=== PATIENT | female | born 1950 | race Caucasian/White ===

== ENCOUNTER → 2023-08-01 12:35 | Outpatient (REF) | payer MEDICARE, SELFPAY | LOC: WDC 12:35 | PROVIDERS: ATTENDING PHYSICIAN Obstetrics & Gynecology; FAMILY PHYSICIAN Family Medicine | DX: Z12.31 Encounter for screening mammogram for malignant neoplasm of breast (principal) | CPT/HCPCS: 77063; 77067 ==

== ENCOUNTER 2024-04-21 05:54 | Inpatient (IN) | payer MEDICARE, SELFPAY ==
[2024-03-31 13:48] LABS: Hematocrit 43.6 % (37.0-47.0); Hemoglobin 14.8 g/dL (12.0-16.0); Mean Corp Hgb Conc. 33.9 g/dL (33.0-37.0); Mean Corpuscular Hgb 29.3 pg (27.0-31.0); Mean Corpuscular Volume 86.3 fL (81.0-99.0); Mean Platelet Volume 9.4 fL (7.4-10.4); Platelet Count 335 10^3/uL (130-400); Red Blood Cell Count 5.05 10^6/uL (4.20-5.40); Red Cell Dist. Width 13.2 % (11.5-14.5); White Blood Cell Count 8.2 10^3/uL (4.8-10.8)
[2024-03-31 13:51] VITALS: BMI 34.6
[2024-03-31 14:20] LABS: Glycohemoglobin (HgbA1c) 5.7 % (4.0-5.6)
[2024-03-31 15:41] LABS: ALT (SGPT) 24 U/L (0-35); AST (SGOT) 29 U/L (14-36); Albumin 4.4 g/dl (3.5-5.0); Alkaline Phosphatase 125 U/L (38-126); Blood Urea Nitrogen 16 mg/dl (7-17); Calcium 9.6 mg/dl (8.4-10.2); Carbon Dioxide 22 mmol/L (22-30); Chloride 105 mmol/L (98-107); Estimated Creatinine Clearance 57 ml/min; Glucose 79 mg/dl (70-99); Sodium 138 mmol/L (135-145); Total Bilirubin 0.6 mg/dl (0.2-1.3); Total Protein 7.1 g/dl (6.3-8.2); eGFR 53.72
--- NOTE | 2024-03-31 15:42 | HPS.HSE ---
Family Physician
-
Family Physician: Tad Garcia
Chief Complaint
-
Advanced primary osteoarthritis of the right knee.
History of Present Illness
The patient is a 73-year-old female presenting today for advanced primary osteoarthritis of the right knee. The patient previously underwent a left total hip arthroplasty with Dr. Dallas Robertson in March 2022. She returns to [facility] today with complaints of significant right knee pain associated with her osteoarthritis. She notes that her current right knee pain is greatly interfering with her activities of daily living and is overall impacting her quality of life. She
has tried and failed multiple conservative treatment measures in the past for her right knee pain. These conservative treatment measures include formal PT, activity modification, self-directed therapeutic exercises, corticosteroid and Zilretta
injections, medical management with Tylenol and NSAIDs, and the application of ice and/or heat. Recent x-ray findings of the right knee confirmed advanced osteoarthritis. She was determined to be in need of a right total knee arthroplasty. She
denies any current complaints today such as chest pain, shortness of breath, palpitations, nausea, vomiting, diarrhea, lightheadedness, dizziness, cough, sore throat, or fever.
Medical History
Past Medical History
Past Medical History: Reports Other
Additional Past Medical History:
1. Osteoarthritis, status post left total hip arthroplasty, 03/2022, by Dr Dallas Robertson.
2. Elevated blood pressure without diagnosis of hypertension.
3. Hyperlipidemia.
4. PVCs.
5. Mild renal insufficiency per pre-operative labs.
6. Nephrolithiasis.
7. Myoclonic seizures.
8. Remote vertigo.
9. Essential tremor of upper and lower extremities.
10. Peripheral neuropathy.
11. Lumbar degenerative disc disease with stenosis.
12. Compression fracture of L1 vertebrae, non-surgical.
13. History of hypothyroidism, currently euthyroid.
14. Basal cell carcinoma, status post multiple MOHS.
15. Depression.
16. Anxiety.
17. Osteopenia.
18. Chronic postnasal drip.
19. 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
20. MRSA + nasal screen 04/05/2022.
21. Prediabetes, A1c 5.7.
22. Obesity, BMI 34.6.
Past Surgical History: Reports Other
Additional Past Surgical History:
1. Left total hip arthroplasty, 2022, by Dr. Dallas Robertson.
2. Left foot surgery.
3. Neck lipoma excision.
4. Left breast cystectomy.
5. Septoplasty.
6. D&C.
7. .
8. Multiple MOHS.
9. Colonoscopy x2.
Social History
Tobacco: Non-smoker
Alcohol: None
Personal:
Living: Other (The patient lives in a two-story home with her spouse and daughter. She plans on doing outpatient PT with [facility] in [place], [place]. )
Family History
Family History: Not pertinent
Allergies / Home Medications
Allergy/Medication List:
Home medications:
1. Acetaminophen oral solution 480 mg p.o. daily as needed.
2. Clonazepam 0.25 mg p.o. daily.
3. Clonazepam 0.25 mg p.o. daily as needed.
4. Ibuprofen 200 mg p.o. daily.
5. Escitalopram oxalate 20 mg p.o. daily.
6. Magnesium glycinate 500 mg p.o. daily at noon.
7. Modafinil 200 mg p.o. daily.
8. Nome-3 500 mg p.o. daily at noon.
9. Vitamin B complex 1 tablet p.o. daily.
10. Zonisamide 100 mg p.o. daily.
ALLERGIES: Pollen and Lidocaine patches.
ADVERSE DRUG REACTIONS: Aspirin (abdominal pain with full dose Aspirin).
Review of Systems
-
A 12 point ROS was completed and negative except as noted: Yes
Physical Exam
Vital Signs
Blood pressure 142/90. Heart rate 82. Respirations 18. Pulse ox 96% on room air.
Height 5 feet, 7 inches. Weight 100.1 kg. BMI 34.6.
Physical Exam
General: Well Developed, Well Nourished and No Apparent Distress
HEENT: NormoCephalic, Moist mucous membranes, Atraumatic and PERRLA
Respiratory: Clear
Cardiac: Regular Rhythm
GI: Soft, Non Tender, Non Distended and Other (Obese. )
Musculoskeletal: Other (Right knee: large effusion, positive warmth, significant valgus alignment, 0-125 range of motion. Left hand and right foot tremor noted. )
Skin: Warm and Dry
Neuro: AO x 3 and Nonfocal/grossly intact
Laboratory Results
-
03/31/24 12:38
03/31/24 12:38
Laboratory Results
Total Bilirubin 0.6 mg/dl (0.2-1.3) 03/31/24 12:38
AST 29 U/L (14-36) 03/31/24 12:38
ALT 24 U/L (0-35) 03/31/24 12:38
Alkaline Phosphatase 125 U/L (38-126) 03/31/24 12:38
Hemoglobin A1c 5.7.
MRSA nasal screen negative; however, she does have a positive MRSA nasal swab from March 2022.
EKG 03/31/2024: Normal sinus rhythm with occasional PVCs. Septal infarct, age undetermined.
Impression/Plan
-
CLEARANCES:
1. Primary care, Dr. Tad Clark, pending.
Primary care phone number: [phone].
2. Cardiology, Dr. Dawn Rider, cleared.
3. Dental waived.
IMPRESSION/PLAN:
1. Advanced primary osteoarthritis of the right knee in need of a right total knee arthroplasty by Dr. Dallas Robertson on 04/21/2024. The benefits and risks of the procedure have been explained to the patient. The patient understands these risks and
wishes to proceed.
2. Deep vein thrombosis prophylaxis: Aspirin 81 mg p.o. twice a day for 4 weeks with bilateral venous compression devices. Baby Aspirin will be used instead of full dose Aspirin due to previous adverse drug reaction.
3. Pain management: The patient would prefer Tylenol oral solution if able. We will also include Dilaudid for moderate-severe pain as needed and Cyclobenzaprine twice a day for muscle spasms as needed. She reportedly tolerated these medications well
after her prior left total hip arthroplasty.
4. Myoclonic seizures: The patient was noted to have seizure-like activity after her previous left total hip arthroplasty which did require Versed and a neurology consult. In an attempt to prevent this from happening again, the patient's
neuropsychiatrist, Dr. Dimas Gillespie, was asked for medication recommendations. The patient was advised to increase her Zonisamide from 100 mg to 150 mg p.o. daily for 1 week pre-surgery and 1 week post-surgery. She will continue to use Klonopin
on an as needed basis; however, she was advised to take this the morning of her procedure.
5. History of MRSA + nasal screen: We will include IV Vancomycin in addition to IV Ancef for joint prophylaxis. She was already started on nasal Mupirocin ointment. We will advise she continue her nasal Mupirocin for 2 weeks post-surgery until her
incision heals. We will repeat a MRSA swab the day of surgery.
Patient's phone number: [phone].
Patient's contact (Mike Johnson - Spouse): [phone].
[2024-04-01 08:50] VITALS: BMI 34.6
[2024-04-21] VITALS (19 sets, daily range): BP systolic 95–169; BP diastolic 48–96; PULSE 65; O2SAT 95
[2024-04-21] MEDS: TYLENOL 650 MG PO (06:28)
[2024-04-21] MEDS: CELEBREX 200 MG PO (06:29)
[2024-04-21] MEDS: NORMOSOL-R/PLASMALYTE-A 1000 IV ×2 (06:35→11:44)
[2024-04-21] MEDS: VANCOCIN 530 MG IV (06:39)
[2024-04-21] MEDS: DILAUDID 0.25 MG IV (09:45)
[2024-04-21] MEDS: ATIVAN 1 MG IV ×2 (10:37→23:37)
--- NOTE | 2024-04-21 11:47 | SUR.PHASEI ---
pt had seizure like motions i.e. clenched fists, eyes tightly closed, rhythmic contractions upper ext. Pt had eyes tightly closed, RN opened them, eyes tracking RN, although pt not responding to voice commands during episode. Reassured pt, notified
Dr Palma who came to see pt. Pt took anti seizure med this AM, treating pain as ordered, pt requesting musle relaxant, 's orders followed. No post ictal phase noted.
--- NOTE | 2024-04-21 13:00 | PTCARENOTE ---
Pt received from the PACU via bed. Transport was w/o incident. Pt is AAOx3, HRR, Lungs are clear, resp. easy, pulse ox is 95% on 2Lvia nc. VS: 98.2-63-18-95/59. Pt's right knee with Antibacterial dressing scant blood spot, Dry and intact. Ice pack
applied as ordered. Pt is able to move right foot and wiggle toes. Pt reports full return of sensation to right leg. Thigh high TEDS and foot pumps maintained. Pt instructed on plan of care. Pt verbalized understanding of instructions. Call murray is
within reach.
--- NOTE | 2024-04-21 14:18 | W.PN.UPDATE ---
Update Note
Progress Note Update
R knee OA s/p R TKA w/ Dr Robertson 04/21/24
- s/p L HILDA, 03/2022, by Dr Robertson
DVT prophylaxis - ASA 81 mg PO BID x4 weeks due to ADR w/ full dose ASA, b/l venous foot pumps
- Will start daily Protonix to minimize abdominal pain
Elevated BP without diagnosis of HTN - monitor BP
PVCs - monitor on tele
Mild renal insufficiency per pre-operative labs - minimize NSAIDs as able
Myoclonic seizures - per neuropsychiatrist, increase daily Zonegran from 100 to 150 mg daily 1 week pre- and one week post-surgery
- Continue PO Klonopin daily; did take AM of surgery
- Seizure-like activity reported in PACU, consistent w/ history. Likely in setting of pain (pain, stress reported known triggers). Responded well to IV Lorazepam x1.
- Per Neurology, no need to treat each event as events are not hurting patient. Appreciate their input
Peripheral neuropathy - consider Lyrica or Gabapentin
MRSA + nasal screen 04/05/2022 - add IV Vanco in addition to IV Ancef for joint prophylaxis
- Started on nasal Mupirocin pre-op; will continue for 2 weeks post-op as incision heals
- Of note, negative MRSA swab documented 03/31/24; will repeat swab during admission to hopefully clear patient of MRSA
HLD
Nephrolithiasis
Remote vertigo
Essential tremor of upper and lower extremities
Lumbar degenerative disc disease with stenosis
Compression fracture of L1 vertebrae, non-surgical
History of hypothyroidism, currently euthyroid
Basal cell carcinoma, status post multiple MOHS
Depression
Anxiety
Osteopenia
Chronic postnasal drip
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
Prediabetes, A1c 5.7
Obesity, BMI 34.6
--- NOTE | 2024-04-21 14:50 | CON.NEURO ---
Neuro Assessment/Plan
Assessment
patient with habitual event. they are not bothersome
I'm not convinced that these are seizures, but she seems to know more about this than I do
Plan
advise not treating events each time they happen.
Consultation
Order
Date of Consultation: 04/21/24
Requesting Provider: Jes Ortez
Reason for Consult: seizure
Subjective/Objective
Subjective Data
Date of Service: April 21, 2024
She is a 73 year old woman admitted for R TKA. History of myoclonic seizures, her habitual event is eyes closed tightly, clenched fists, with preserved awareness. often induced by pain or intense emotions. began after a bout of lyme disease. At home
she is on Zonegran 100 daily, and as this has happened after previous surgeries, her neuropsychiatrist advised increasing to 150 mg 1 week before surgery until 1 week after surgery.
had her habitual event, suspect triggered by pain. Responded to Ativan 1 mg.
Objective Data
Vital Signs
Temp Pulse Resp BP Pulse Ox
36.8 C 65 16 118/60 95
04/21/24 12:45 04/21/24 12:55 04/21/24 12:45 04/21/24 12:55 04/21/24 12:55
Lab Results
03/31/24 12:38
03/31/24 12:38
Sodium 138 mmol/L (135-145) 03/31/24 12:38
Potassium 5.0 mmol/L (3.5-5.1) 03/31/24 12:38
BUN 16 mg/dl (7-17) 03/31/24 12:38
Glucose 79 mg/dl (70-99) 03/31/24 12:38
Calcium 9.6 mg/dl (8.4-10.2) 03/31/24 12:38
Patient Allergies
pollen extracts Allergy (Verified 04/21/24 06:24)
seasonal allergies
aspirin Adverse Reaction (Verified 04/21/24 06:24)
abdominal pain
lidocaine patches Allergy (Uncoded 04/21/24 06:24)
rash
Physical Exam
-
awake, conversant
Medications
-
Active Medications
Generic Name Dose Route Start Last Admin
Trade Name Freq PRN Reason Stop Dose Admin
Acetaminophen 650 mg 04/21/24 12:00
Acetaminophen (Oral Solution) 650 Mg/20.3 Ml Cup PO 05/19/24 11:59
Q4HWA INOCENTE
Al Hydrox/Mg Hydrox/Simethicone 30 ml 04/21/24 08:14
Mag/Al/Simethicone Suspension 30 Ml Cup PO 05/19/24 08:13
Q4HPRN PRN
INDIGESTION
Aspirin 81 mg 04/21/24 20:00
Aspirin 81 Mg Chewable Tablet PO 05/19/24 19:59
BID INOCENTE
Clonazepam 0.25 mg 04/22/24 08:00
Clonazepam 0.25 Mg Dose PO 05/20/24 07:59
DAILY INOCENTE
Dexamethasone 4 mg 04/21/24 20:00
Dexamethasone 4 Mg Tablet PO 04/24/24 08:01
BID INOCENTE
Docusate Sodium 100 mg 04/21/24 20:00
Docusate Sodium 100 Mg Capsule PO 05/19/24 19:59
BID INOCENTE
Escitalopram Oxalate 20 mg 04/21/24 08:14
Escitalopram 20 Mg Tablet PO 05/19/24 08:13
DAILY INOCENTE
Hydromorphone HCl 0.5 mg 04/21/24 06:51
Hydromorphone 0.5 Mg/0.5 Ml Syringe IV 04/22/24 06:51
PACU-Q5MPRN PRN
severe pain
Hydromorphone HCl 0.25 mg 04/21/24 06:51 04/21/24 09:45
Hydromorphone 0.25 Mg/0.5 Ml Syringe IV 04/22/24 06:51 0.25 mg
PACU-Q5MPRN PRN Administration
moderate pain
Hydromorphone HCl 0.5 mg 04/21/24 08:14
Hydromorphone 0.5 Mg/0.5 Ml Syringe IV 05/05/24 08:13
Q4HPRN PRN
SEVERE BREAKTHROUGH PAIN ONLY
Hydromorphone HCl 2 mg 04/21/24 08:14
Hydromorphone 2 Mg Tablet PO 05/05/24 08:13
Q4HPRN PRN
moderate pain
Hydromorphone HCl 4 mg 04/21/24 08:14
Hydromorphone 4 Mg Tablet PO 05/05/24 08:13
Q4HPRN PRN
severe pain
Parenteral Electrolytes 1,000 mls @ 50 mls/hr 04/21/24 06:00 04/21/24 06:35
Normosol-R/Plasmalyte-A IV 04/22/24 01:59 1,000 mls
SDS-ONCE ONE Administration
Parenteral Electrolytes 1,000 mls @ 100 mls/hr 04/21/24 07:00
Normosol-R/Plasmalyte-A IV 04/22/24 06:51
PER PROTOCOL INOCENTE
Parenteral Electrolytes 1,000 mls @ 100 mls/hr 04/21/24 08:14 04/21/24 11:44
Normosol-R/Plasmalyte-A IV 04/21/24 18:13 1,000 mls
.Q10H INOCENTE Administration
Cefazolin Sodium 1 gram in 5 mls @ 60 mls/hr 04/21/24 14:00
Ancef IV 04/21/24 22:04
Q8H INOCENTE
Vancomycin HCl 1 gram in 200 mls @ 200 mls/hr 04/21/24 18:30
Vancocin IV 04/21/24 19:29
Q12H INOCENTE
Protocol
Lorazepam 1 mg 04/21/24 12:06
Lorazepam 2 Mg/Ml Vial IV 05/19/24 11:09
Q6HPRN PRN
seizures/muscle spasms
Magnesium Hydroxide 30 ml 04/21/24 08:14
Milk Of Magnesia 30 Ml Cup PO 05/19/24 08:13
DAILYPRN PRN
constipation
Meperidine HCl 12.5 mg 04/21/24 06:51
Meperidine 25 Mg/Ml Injection IV 04/22/24 06:51
PACU-Q5MPRN PRN
shivers
Modafinil 200 mg 04/21/24 14:00
Modafinil 200 Mg Tablet PO 05/19/24 13:59
DAILY INOCENTE
Mupirocin 1 gram 04/21/24 06:00
Mupirocin 2% Ointment (Nasal) 1 Gram Tube NASAL 04/22/24 05:59
SDS-ONCEPRN PRN
if pt did not self-administer
Mupirocin 0 applic 04/21/24 20:00
Mupirocin 2% (Ointment) 22 Gram Tube NASAL 04/22/24 20:01
BID INOCENTE
Ondansetron HCl 4 mg 04/21/24 06:51
Ondansetron 4 Mg/2 Ml Vial IV 04/22/24 06:51
PACU-ONCEPRN PRN
nausea/vomiting
Pantoprazole Sodium 40 mg 04/21/24 08:14
Pantoprazole 40 Mg Delayed Release Tablet PO 05/19/24 08:13
DAILY INOCENTE
Prochlorperazine Edisylate 5 mg 04/21/24 06:51
Prochlorperazine 10 Mg/2 Ml Vial IV 04/22/24 06:51
PACU-ONCEPRN PRN
nausea/vomiting
Prochlorperazine Edisylate 5 mg 04/21/24 08:14
Prochlorperazine 10 Mg/2 Ml Vial IV 05/19/24 08:13
Q6HPRN PRN
nausea/vomiting
Prochlorperazine Maleate 5 mg 04/21/24 08:14
Prochlorperazine 5 Mg Tablet PO 05/19/24 08:13
Q6HPRN PRN
nausea/vomiting
Sennosides 17.2 mg 04/21/24 20:00
Sennosides (Senokot) 8.6 Mg Tablet PO 05/19/24 19:59
BID INOCENTE
Sodium Chloride 0 flush 04/21/24 08:00
Sodium Chloride 0.9% (Flush) Syringe IV 05/19/24 07:59
PER PROTOCOL INOCENTE
Sodium Chloride 0.5 ml 04/21/24 13:04
Nss (Pf) 10 Ml Vial For Ativan 1 Mg Dose IV 05/19/24 13:03
Q6HPRN PRN
IV LORAZEPAM DILUTION
Tamsulosin HCl 0.4 mg 04/21/24 08:14
Tamsulosin 0.4 Mg Capsule PO 05/19/24 08:13
DAILYPRN PRN
bladder scan volume > 400 mL
Zonisamide 100 mg 04/21/24 14:00
Zonisamide 100 Mg Capsule PO 05/19/24 13:59
DAILY INOCENTE
Zonisamide 50 mg 04/21/24 14:00
Zonisamide 25 Mg Capsule PO 05/19/24 13:59
DAILY INOCENTE
Home Medications
�Medication �Instructions �Recorded
clonazepam 0.5 mg tablet (Klonopin) 0.25 mg PO DAILY 04/05/22
escitalopram oxalate 20 mg tablet 20 mg PO DAILY 04/05/22
(Lexapro)
acetaminophen 160 mg/5 mL oral 480 mg PO DAILYPRN PRN Pain 03/30/24
suspension
clonazepam 0.25 mg disintegrating 0.25 mg PO DAILYPRN PRN ANXIETY, 03/30/24
tablet Seizure Aura
ibuprofen 200 mg capsule 200 mg PO DAILY 03/30/24
magnesium glycinate 100 mg (as 500 mg PO NOON 03/30/24
glycinate) tablet
modafinil 200 mg tablet 200 mg PO DAILY 03/30/24
omega-3 fatty acids 500 mg capsule 500 mg PO NOON 03/30/24
vitamin B complex 1 tab PO DAILY 03/30/24
mupirocin 2 % topical ointment 1 applic intranasal BID #1 tube 03/31/24
zonisamide 100 mg capsule 100 mg PO DAILY 04/15/24
(Zonegran)
zonisamide 25 mg capsule (Zonegran) 50 mg (2 x 25 mg) PO DAILY #60 caps 04/15/24
[2024-04-21] MEDS: TORADOL 30 MG IV (14:53)
[2024-04-21] MEDS: ANCEF 5 IV ×2 (14:53→21:44)
[2024-04-21] MEDS: ZONEGRAN PO ×2 (14:55→14:56)
[2024-04-21] MEDS: FLOMAX 0.4 MG PO (15:10)
[2024-04-21] MEDS: PROVIGIL 200 MG PO (15:10)
[2024-04-21] MEDS: DILAUDID 4 MG PO (15:10)
[2024-04-21] MEDS: LEXAPRO 20 MG PO (15:10)
[2024-04-21] MEDS: PROTONIX 40 MG PO (15:10)
[2024-04-21] MEDS: TYLENOL ORAL SOLUTION PO (15:11)
[2024-04-21] MEDS: TYLENOL ORAL SOLUTION 650 MG PO ×2 (15:11→20:07)
[2024-04-21] MEDS: VANCOCIN 200 IV (18:42)
[2024-04-21] MEDS: LOW STRENGTH ASPIRIN 81 MG PO (20:07)
[2024-04-21] MEDS: SENOKOT 17.2 MG PO (20:07)
[2024-04-21] MEDS: BACTROBAN 2% OINTMENT 1 APPLIC NASAL (20:07)
[2024-04-21] MEDS: COLACE 100 MG PO (20:07)
[2024-04-21] MEDS: DECADRON 4 MG PO (20:07)
[2024-04-21] MEDS: NSS (PRESERVATIVE FREE) 0.5 ML IV (23:39)
--- NOTE | 2024-04-21 23:40 | W.PN.UPDATE ---
Update Note
Progress Note Update
Rapid response called at 2327 on 04/21/24.
Patient w/seizure activity while in the bathroom, sitting on the toilet. Seizure described as eyes closed tightly, b/l fists clenched, slight body jerks. Patient was alert and oriented throughout the entire episode.
Noted that patient had similiar episode in PACU and was seen by Neurology. These events are consistent with history, triggered by pain, stress or intense emotions.
Treated with PRN dose Ativan 1 mg IV. Resting in bed. Seizure activity resolved.
--- NOTE | 2024-04-22 00:05 | PTCARENOTE ---
Addendum entered by Mireya Leigh RN 04/22/24 00:35:
CHRIS Jean Baptiste advised not to get pt OOB.
Original Note:
Pt walked to bathroom with pct. Pt started to have seizure-like activity (stiffening of upper and lower extremities). This RN and pct stayed with pt as rapid response was called. Pt safely moved from toilet to bed in . IV ativan given. Pt aa&ox3.
VSS. Care ongoing.
[2024-04-22] MEDS: TYLENOL ORAL SOLUTION 650 MG PO ×4 (00:37→13:16)
[2024-04-22 03:09] VITALS: BP 142/66
[2024-04-22 07:45] VITALS: BP 133/66
[2024-04-22] MEDS: DILAUDID 4 MG PO (08:26)
[2024-04-22] MEDS: SENOKOT 17.2 MG PO (08:28)
[2024-04-22] MEDS: PROVIGIL 200 MG PO (08:28)
[2024-04-22] MEDS: LOW STRENGTH ASPIRIN 81 MG PO (08:28)
[2024-04-22] MEDS: PROTONIX 40 MG PO (08:28)
[2024-04-22] MEDS: DECADRON 4 MG PO (08:28)
[2024-04-22] MEDS: LEXAPRO 20 MG PO (08:28)
[2024-04-22] MEDS: COLACE 100 MG PO (08:28)
[2024-04-22] MEDS: ZONEGRAN 50 MG PO (08:29)
[2024-04-22] MEDS: ZONEGRAN 100 MG PO (08:29)
[2024-04-22] MEDS: BACTROBAN 2% OINTMENT 1 APPLIC NASAL (08:30)
[2024-04-22] MEDS: KLONOPIN 0.25 MG PO (08:41)
--- NOTE | 2024-04-22 09:14 | W.PN.ORTHO ---
Today's Communication / Plan
-
Await PT and OT recs.
D/c later today if remaining clinically stable.
Assessment
.
Distal Motor Intact: Yes
Dressing:
Scant old incisional bleeding - unchanged since yesterday.
Assessment:
R knee OA s/p R TKA w/ Dr Robertson 04/21/24
- s/p L HILDA, 03/2022, by Dr Robertson
DVT prophylaxis - ASA 81 mg PO BID x4 weeks due to ADR w/ full dose ASA, b/l venous foot pumps
- Did start daily Protonix to minimize abdominal pain
Elevated BP without diagnosis of HTN - BPs overall stable
PVCs - rhythm stable on tele (NSR w/ PVCs)
Mild renal insufficiency per pre-operative labs - minimize NSAIDs as able
Myoclonic seizures - per neuropsychiatrist, increase daily Zonegran from 100 to 150 mg daily 1 week pre- and one week post-surgery
- Continue PO Klonopin daily; did take AM of surgery
- Seizure-like activity reported in PACU, consistent w/ history. Likely in setting of pain (pain, stress reported known triggers). Responded well to IV Lorazepam x1.
- 2nd seizure-type episode occurring overnight in bathroom. Pt reportedly in pain w/ ambulation, triggering episode. Again consistent w/ history and responded well to IV Lorazepam. Does have Clonazepam at home for prn use.
- Per Neurology, no need to treat each event as events are not hurting patient. Appreciate their input
Peripheral neuropathy - Lyrica or Gabapentin considered but not needed at this time
MRSA + nasal screen 04/05/2022 - added IV Vanco in addition to IV Ancef for joint prophylaxis
- Started on nasal Mupirocin pre-op; will continue for 2 weeks post-op as incision heals
- Of note, negative MRSA swab documented 03/31/24; did repeat swab during admission to hopefully clear patient of MRSA
HLD
Nephrolithiasis
Remote vertigo
Essential tremor of upper and lower extremities
Lumbar degenerative disc disease with stenosis
Compression fracture of L1 vertebrae, non-surgical
History of hypothyroidism, currently euthyroid
Basal cell carcinoma, status post multiple MOHS
Depression
Anxiety
Osteopenia
Chronic postnasal drip
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
Prediabetes, A1c 5.7
Obesity, BMI 34.6
Plan
.
Surgery / Date: R TKA w/ Dr Robertson 04/21/24
DVT Prophylaxis: Aspirin
Activity:
Out of bed.
PT/OT
Discharge Plan: Home w/ Outpatient PT
Subjective
.
.:
Patient resting comfortably in bed this AM.
R knee pain better tolerated in comparison to yesterday.
Denies any new significant complaints.
Eager for potential d/c today.
Vital Signs and Labs
.
Vital Signs and Labs:
Lab Results
03/31/24 12:38
03/31/24 12:38
Temp Pulse Resp BP Pulse Ox
98.4 F 73 14 133/66 93
04/22/24 07:45 04/22/24 07:45 04/22/24 07:45 04/22/24 07:45 04/22/24 07:45
Non-invasive Hgb result: 13.9
Physical Exam
-
HEENT: No pallor, cyanosis, or jaundice. Throat clear.
NECK: Supple. No JVD.
RESPIRATORY: Lungs clear to auscultation.
CVS: S1, S2 normal. RRR.�
ABDOMEN: Soft, non-tender. No distension. Obese.
EXTREMITIES: Chronic upper extremity tremor noted. Expected post-surgical R knee edema. Strength equal, no calf pain with palpation/dorsiflexion. Calves soft.
TREATER: AOx3. No focal deficits. sail cutter grossly intact
--- NOTE | 2024-04-22 09:34 | W.DS.TRANS ---
DC Summary - Rod Drawer
-
Discharge Instructions:
Sleep Apnea Risk Intermediate
Discharge Diagnosis/Procedures R knee OA s/p R TKA w/ Dr Robertson 04/21/24
Diet Other diet
Additional Diets Diabetic carb controlled x1 week for wound
healing/infection prevention
Activity As tolerated,With Walker
Driving Restrictions Not until seen by your Dr
Bathing Restrictions OK to Shower
Other Services PT
Wound Care Dressing to be removed 1 week post-surgery.
Instructions:
Stand-Alone Forms: Total Hip/Knee Replacement D/C
Changes to Home Medications: Yes
Discharge Medications:
DC Medications w/original date entered in [employer]
clonazepam 0.5 mg tablet (Klonopin) 0.25 mg PO DAILY 04/05/22
escitalopram oxalate 20 mg tablet (Lexapro) 20 mg PO DAILY 04/05/22
clonazepam 0.25 mg disintegrating tablet 0.25 mg PO DAILYPRN PRN ANXIETY, Seizure Aura 03/30/24
magnesium glycinate 100 mg (as glycinate) tablet 500 mg PO NOON 03/30/24
modafinil 200 mg tablet 200 mg PO DAILY 03/30/24
omega-3 fatty acids 500 mg capsule 500 mg PO NOON 03/30/24
vitamin B complex 1 tab PO DAILY 03/30/24
zonisamide 100 mg capsule (Zonegran) 100 mg PO DAILY 04/15/24
acetaminophen 650 mg/20.3 mL oral solution 650 mg (20.3 mL) PO Q4HWA #1,015 mL 04/22/24
aspirin 81 mg chewable tablet 81 mg PO BID #60 tabs 04/22/24
cyclobenzaprine 5 mg tablet 5 mg PO DAILY PRN muscle spasms #10 tabs 04/22/24
dexamethasone 4 mg tablet 4 mg PO BID Anti-inflammatory #5 tabs 04/22/24
docusate sodium 100 mg capsule 100 mg PO BID #30 caps 04/22/24
hydromorphone 2 mg tablet (Dilaudid) 2 - 4 mg (1 - 2 x 2 mg) PO Q6H PRN moderate-severe pain #30 tabs 04/22/24
mupirocin 2 % topical ointment 1 applic intranasal BID #1 tube 04/22/24
pantoprazole 40 mg tablet,delayed release 40 mg PO DAILY #30 tabs 04/22/24
prochlorperazine maleate 5 mg tablet 5 mg PO Q8HPRN PRN nausea/vomiting #30 tabs 04/22/24
sennosides 8.6 mg tablet (Jessica-dominique) 17.2 mg (2 x 8.6 mg) PO BID #30 tabs 04/22/24
zonisamide 25 mg capsule 50 mg (2 x 25 mg) PO DAILY #14 caps 04/22/24
Home Medication Changes
acetaminophen 650 mg/20.3 mL oral solution 650 mg (20.3 mL) PO Q4HWA #1,015 mL 04/22/24
aspirin 81 mg chewable tablet 81 mg PO BID #60 tabs 04/22/24
cyclobenzaprine 5 mg tablet 5 mg PO DAILY PRN muscle spasms #10 tabs 04/22/24
dexamethasone 4 mg tablet 4 mg PO BID Anti-inflammatory #5 tabs 04/22/24
docusate sodium 100 mg capsule 100 mg PO BID #30 caps 04/22/24
hydromorphone 2 mg tablet (Dilaudid) 2 - 4 mg (1 - 2 x 2 mg) PO Q6H PRN moderate-severe pain #30 tabs 04/22/24
mupirocin 2 % topical ointment 1 applic intranasal BID #1 tube 04/22/24
pantoprazole 40 mg tablet,delayed release 40 mg PO DAILY #30 tabs 04/22/24
prochlorperazine maleate 5 mg tablet 5 mg PO Q8HPRN PRN nausea/vomiting #30 tabs 04/22/24
sennosides 8.6 mg tablet (Jessica-dominique) 17.2 mg (2 x 8.6 mg) PO BID #30 tabs 04/22/24
zonisamide 25 mg capsule 50 mg (2 x 25 mg) PO DAILY #14 caps 04/22/24 - added to 100 mg for 1 week post-surgery
Pending Results: Yes (MRSA nasal swab)
[2024-04-22 10:00] VITALS: BP 143/78
--- NOTE | 2024-04-22 10:45 | CM ---
Addendum entered by Rhiannon Barcenas 04/22/24 10:49:
IMM benefit explained; form signed @ [id number]
Original Note:
Initial assessment and CM Consult completed at bedside
Pharmacy verified: [facility] @ [address]
Patient lives with and daughter, multilevel home; 2 steps to enter; 12-13 steps to master bedroom and bathroom; railing on stairs; powder room 1st floor; bedroom on 1st floor
Ambulates with a cane; reported she is independent with personal care; drives
NO SNF or home health utilization history
will transport home
Plan: Discharge to home today with Outpatient Physical Therapy
[2024-04-22 12:30] VITALS: BP 162/77
--- NOTE | 2024-04-22 13:40 | PTCARENOTE ---
While Pt was working with Physical Therapy Pt had what appeared to be seizure -like activity, upper body tremors noted along with eye twitches, lasting for approx. 1-2minutes. Pt waited 1-2 seconds, but then responded to verbal cues to open her eyes
and take deep breaths. Pt able to respond and answer this nurse verbally as well. Pt walked backed to her room and BP: 151/87 with heart rate of 71, resp. 18. Pt appeared to recover well, and be back to baseline. These episodes are not new for this
Pt and she reports they occur with pain post operatively. Pt medicated with Dilaudid 2mg po as ordered. Will continue to monitor for any further symptoms.
[2024-04-22] MEDS: DILAUDID 2 MG PO (13:59)
[2024-04-22 14:00] VITALS: BP 151/87; PULSE 71; O2SAT 94
[2024-04-22] MEDS: PREVNAR 20 0.5 ML IM (15:06)
== END 2024-04-22 15:45 | disposition home or self-care (01) | DRG 470 ==
LOC: 2 SOUTH 05:54
PROVIDERS: Physician Assistant; ADMITTING PHYSICIAN Orthopaedic Surgery; CONSULT PHYSICIAN Psychiatry & Neurology Clinical Neurophysiology; FAMILY PHYSICIAN Family Medicine
PROC: 0SRC069 Replacement of Right Knee Joint with Oxidized Zirconium on Polyethylene Synthetic Substitute, Cemented, Open Approach (ICD-10-PCS; 2024-04-21)
PROC: 3E0234Z Introduction of Serum, Toxoid and Vaccine into Muscle, Percutaneous Approach (ICD-10-PCS; 2024-04-22)
DX: M17.11 Unilateral primary osteoarthritis, right knee (principal); A69.20 Lyme disease, unspecified; A77.40 Ehrlichiosis, unspecified; B60.00 Babesiosis, unspecified; E66.9 Obesity, unspecified; G25.3 Myoclonus; G62.9 Polyneuropathy, unspecified; E78.5 Hyperlipidemia, unspecified; R03.0 Elevated blood-pressure reading, without diagnosis of hypertension; I49.3 Ventricular premature depolarization; Z79.82 Long term (current) use of aspirin; Z68.34 Body mass index [BMI] 34.0-34.9, adult; Z96.642 Presence of left artificial hip joint; Z22.322 Carrier or suspected carrier of Methicillin resistant Staphylococcus aureus; Z23 Encounter for immunization
CPT/HCPCS: 36415; 73560; 80053; 83036; 85027; 87070; 90677; 93005; 97110; 97116; 97162; 97166; 97530; 97535; C1713; C1776; G0009